=== PATIENT | female | born 1960 | race African-American/Black ===

== ENCOUNTER → 2016-03-08 | Outpatient (CLI) | payer MEDICARE, OTHER ==
[~2016-03-08] MED LIST: IBUP-232 PO; IBUP600 PO; LISI-515 PO; LISI10TA3 PO; MAXZ PO; METF500 PO; METF500T PO; PRED5TAB PO
[2016-03-08 08:44] LABS: AUTOMATED NEUTROPHIL # 2.3 TH/MM3 (1.8-7.7); BASOPHIL % 0.5 % (0.0-2.0); EOSINOPHIL # 0.1 TH/MM3 (0-0.4); EOSINOPHIL % 2.1 % (0.0-4.0); HEMATOCRIT 39.6 % (35.0-46.0); HEMO FLAGS DIFF FINAL; LYMPH % 48.9 % (9.0-44.0); LYMPHOCYTE # 2.7 TH/MM3 (1.0-4.8); MEAN CELL VOLUME 86.3 FL (80.0-100.0); MEAN CORPUSCULAR HEMOGLOBIN 28.4 PG (27.0-34.0); MEAN CORPUSCULAR HGB CONC 32.9 % (32.0-36.0); MONO % 7.2 % (0.0-8.0); NEUT % 41.3 % (16.0-70.0); PLATELET COUNT 155 TH/MM3 (150-450); RED BLOOD COUNT 4.59 MIL/MM3 (4.00-5.30); RED CELL DISTRIBUTION WIDTH 15.3 % (11.6-17.2); WHITE BLOOD COUNT 5.6 TH/MM3 (4.0-11.0)
[2016-03-08 09:18] LABS: ALKALINE PHOSPHATASE 105 U/L (45-117); ALT (GPT) 28 U/L (10-53); ANION GAP 6 MEQ/L (5-15); AST (GOT) 28 U/L (15-37); BICARBONATE 24.7 MEQ/L (21.0-32.0); BLOOD UREA NITROGEN 15 MG/DL (7-18); CHLORIDE 109 MEQ/L (98-107); FREE T4 1.01 NG/DL (0.76-1.46); GLOMERULAR FILTRATION RATE 132 ML/MIN (>89); GLUCOSE,FASTING 113 MG/DL (74-99); HDL CHOLESTEROL 43.8 MG/DL (40.0-60.0); LDL CHOLESTEROL 72 MG/DL (0-99); POTASSIUM 3.7 MEQ/L (3.5-5.1); SODIUM (NA) 140 MEQ/L (136-145); TOTAL BILIRUBIN ADULT 0.4 MG/DL (0.2-1.0)
[2016-03-08 16:46] LABS: HEMOGLOBIN A1a 0.9 %; HEMOGLOBIN A1b 0.9 %; HEMOGLOBIN Ao 85.7 %; HEMOGLOBIN F 0.6 %; HEMOGLOBIN P3 3.5 %
== END ==
LOC: CLAB 08:04
PROVIDERS: ATTEND Internal Medicine Rheumatology
DX: B19.20 Unspecified viral hepatitis C without hepatic coma (principal); E11.65 Type 2 diabetes mellitus with hyperglycemia; M33.20 Polymyositis, organ involvement unspecified; Z12.11 Encounter for screening for malignant neoplasm of colon
CPT/HCPCS: 36415; 80053; 80061; 82306; 82550; 82552; 83036; 84439; 84443; 85025; 85652; 86140

== ENCOUNTER 2016-08-08 16:43 | Emergency (ER) | payer MEDICARE, OTHER ==
[~2016-08-08] VITALS: Ht 170.2 cm; Wt 104.0 kg
[~2016-08-08 16:43] MED LIST changes: -IBUP-232 PO; -LISI-515 PO; -LISI10TA3 PO; -METF500T PO; -PRED5TAB PO
[2016-08-08 16:45] VITALS: BP 223/129; PULSE 104; RESP 16; TEMP 98.7
--- NOTE | 2016-08-08 16:53 | PD ---
HPI . elevated bp, sob, chest tightness Chief Complaint: Hypertension Time Seen by Provider: 16:53 Travel History International Travel<30 days: No Contact w/Intl Traveler<30days: No Traveled to known affect area: No History of Present Illness HPI 56-year-old female with history of diabetes, hypertension, asthma and frequent falling due to polymyositis here with complaints of elevated blood pressure. Patient said that her blood pressures been elevated today and her home health nurse was very concerned. Her home health nurses checked her blood pressure twice today systolic was greater than 200. Patient also reports that she had shortness of breath, coughing and chest tightness intermittently for the past month. He also tells me that she's been falling frequently and that April of this year she sustained bilateral ankle fracture due to falling. She said she did not have a slip and fall that she just seems to fall frequently. She reports falling in 2014, 2015 and 2 times this year already. She denies any fever or chills. PFSH Past Medical History Asthma: Yes Heart Rhythm Problems: No Cardiac Catheterization: No Cardiovascular Problems: No High Cholesterol: No Congestive Heart Failure: No Diabetes: No Diminished Hearing: No Hypertension: No Immunizations Current: No Migraines: Yes (DAILY H/A FOR YEARS) Myocardial Infarction: No ?: Unknown Menopausal: Yes Past Surgical History Abdominal Surgery: Yes (FIBROIDS) Coronary Artery Bypass Graft: No Gynecologic Surgery: Yes (UTERINS FIBROIDS REMOVED) Social History Alcohol Use: No Tobacco Use: No Substance Use: No Allergies-Medications (Allergen,Severity, Reaction): Coded Allergies: Sulfa (Verified Allergy, Mild, HIVES AND BUMPS, 07/31/15) Reported Meds & Prescriptions Reported Meds & Active Scripts Active Lisinopril 20 Mg Tab 20 Mg PO DAILY Reported Prednisone 5 Mg Tab 5 Mg PO DAILY Ibuprofen 600 Mg Tab 600 Mg PO Q8H PRN Lisinopril 10 Mg Tab 10 Mg PO DAILY Metformin (Metformin HCl) 500 Mg Tab 500 Mg PO BIDPC With meals Review of Systems General / Constitutional: No: Fever Eyes: No: Visual changes HENT: No: Headaches Cardiovascular: Positive: Chest Pain or Discomfort Respiratory: Positive: Cough, Shortness of Breath, No: Wheezing Gastrointestinal: No: Abdominal Pain Genitourinary: No: Dysuria Musculoskeletal: No: Pain Skin: No Rash Neurologic: No: Weakness Psychiatric: No: Depression Endocrine: No: Polydipsia Hematologic/Lymphatic: No: Easy Bruising Physical Exam Narrative GENERAL: AAO x 3, no acute distress, Well-nourished, well-developed patient. SKIN: Warm and dry. No visible rashes or bruising. HEAD: Normocephalic and atraumatic. EYES: No scleral icterus. No injection or drainage. EOM intact, PERRLA ENT: No nasal drainage noted. Mucous membranes pink. Airway patent. oropharynx normal NECK: Supple, trachea midline. No JVD. no lymphadenopathy CARDIOVASCULAR: Regular rate and rhythm without murmurs, gallops, or rubs. RESPIRATORY: Breath sounds equal bilaterally. No accessory muscle use. No rhonchi or rales. GASTROINTESTINAL: Abdomen soft, non-tender, nondistended. EXTREMITIES: No cyanosis or edema. BACK: Nontender without obvious deformity. No CVA tenderness. NEURO: CN II-12 intact, director medicaid strength normal b/l, UE and LE diminished b/l 4/5 but equal, PSYCH: AAO x 3, normal affect. Data Data Last Documented VS Vital Signs Date Time Temp Pulse Resp B/P Pulse Ox O2 Delivery O2 Flow Rate FiO2 08/08/16 18:56 75 16 187/103 97 08/08/16 17:42 Room Air 08/08/16 16:45 98.7 Orders Complete Blood Count With Diff (08/08/16 17:05) Basic Metabolic Panel (Bmp) (08/08/16 17:05) B-Type Natriuretic Peptide (08/08/16 17:05) D-Dimer (08/08/16 17:05) Act Partial Throm Time (Ptt) (08/08/16 17:05) Prothrombin Time / Inr (Pt) (08/08/16 17:05) Magnesium (Mg) (08/08/16 17:05) Ckmb (Isoenzyme) Profile (08/08/16 17:05) Troponin I (08/08/16 17:05) Iv Access Insert/Monitor (08/08/16 17:05) Ecg Monitoring (08/08/16 17:05) Oximetry (08/08/16 17:05) Oxygen Administration (08/08/16 17:05) Chest, Single Ap (08/08/16 17:05) Sodium Chloride 0.9% Flush (Ns Flush) (08/08/16 17:15) Electrocardiogram (08/08/16 17:03) CKMB (08/08/16 17:10) CKMB% (08/08/16 17:10) Ketorolac Inj (Toradol Inj) (08/08/16 18:15) Labs Laboratory Tests Test 08/08/16 17:10 White Blood Count 8.6 TH/MM3 Red Blood Count 4.69 MIL/MM3 Hemoglobin 13.5 GM/DL Hematocrit 40.9 % Mean Corpuscular Volume 87.3 FL Mean Corpuscular Hemoglobin 28.8 PG Mean Corpuscular Hemoglobin 32.9 % Concent Red Cell Distribution Width 14.8 % Platelet Count 148 TH/MM3 Mean Platelet Volume 9.1 FL Neutrophils (%) (Auto) 54.7 % Lymphocytes (%) (Auto) 38.7 % Monocytes (%) (Auto) 5.2 % Eosinophils (%) (Auto) 1.1 % Basophils (%) (Auto) 0.3 % Neutrophils # (Auto) 4.7 TH/MM3 Lymphocytes # (Auto) 3.3 TH/MM3 Monocytes # (Auto) 0.4 TH/MM3 Eosinophils # (Auto) 0.1 TH/MM3 Basophils # (Auto) 0.0 TH/MM3 CBC Comment DIFF FINAL Differential Comment Prothrombin Time 10.6 SEC Prothromb Time International 1.0 RATIO Ratio Activated Partial 23.4 SEC Thromboplast Time D-Dimer Quantitative (PE/DVT) 0.39 MG/L FEU Sodium Level 142 MEQ/L Potassium Level 4.2 MEQ/L Chloride Level 108 MEQ/L Carbon Dioxide Level 27.2 MEQ/L Anion Gap 7 MEQ/L Blood Urea Nitrogen 13 MG/DL Creatinine 0.83 MG/DL Estimat Glomerular Filtration 85 ML/MIN Rate Random Glucose 127 MG/DL Calcium Level 9.0 MG/DL Magnesium Level 2.2 MG/DL Total Creatine Kinase 604 U/L Creatine Kinase MB 5.6 NG/ML Creatine Kinase MB % 0.9 % Troponin I LESS THAN 0.02 NG/ML B-Type Natriuretic Peptide 3 PG/ML MDM Medical Decision Making Medical Screen Exam Complete: Yes Emergency Medical Condition: Yes Medical Record Reviewed: Yes Differential Diagnosis uncontrolled HTN, medication noncompliance, less likely CVA, allergic asthma, less likely asthma exacerbation, Narrative Course 56-year-old female here with complaints of hypertension. Patient also reports some intermittent shortness of breath and chest tightness for the past month. She does have a history of asthma. IV access was obtained, labs and chest x-ray have been ordered. Examination is fairly unremarkable except for bilateral lower extremity weakness 4/5, which appears to be baseline for this patient. I reviewed her past medical records dating back to 2014 and patient does suffer from osteomyelitis causing weakness in both her upper and lower extremities. This also explains her frequent falls. Chest x-ray without any acute abnormality. Last Impressions Chest X-Ray 08/08/16 1245 Signed Impressions: Service Date/Time: , August 08, 2016 17:17 - CONCLUSION: No acute disease. No significant change has occurred. Lenny Yates MD D-dimer is negative. CK and CK-MB are both elevated, but records have been reviewed and they're actually lower than her outpatient lab values. In February 2016 patient had a CK of 797, CK-MB of 8.0. Today they are both lower. It seems patient has baseline elevation of these markers. Otherwise her workup is unremarkable. Patient is only on 10 mg of lisinopril daily. This does not seem to be enough for her blood pressure. I will go ahead and provide her with a prescription for 20 mg of lisinopril daily. BP did improve prior to discharge and patient is asymptomatic. She will need follow-up with her primary care provider for blood pressure monitoring and adjustment of her medication. I have discussed this with her and she is understanding and in agreement with the treatment plan. Case has been discussed with Dr. Callaway who is in agreement with treatment plan. Patient verbalized understanding of instructions, questions were answered, and thanked me for their care. I advised them if their condition worsens, please return to the nearest emergency room for further care. Diagnosis Primary Impression: Hypertension Qualified Code: I10 - Essential hypertension Patient Instructions: General Instructions Additional Instructions: Stop lisinopril 10 mg. Start lisinopril 20 mg daily. Please follow-up with your recovery care provider for blood pressure monitoring and medication adjustment. If any of your symptoms return or worsen, go to the nearest emergency department. Med/Other Pt SpecificInfo: Prescription(s) given Scripts Lisinopril 20 Mg Tab20 Mg PO DAILY #30 TAB Ref 0 Prov:Aristides Callaway MD 08/08/16 Disposition: 01 DISCHARGE HOME Condition: Stable Sandy Feldman Aug 08, 2016 16:53
[2016-08-08 17:00] VITALS: O2SAT 97
[2016-08-08] MEDS ORDERED: SODIUM CHLORIDE 0.9% FLUSH 10 ML FLUSH IVF PRN (17:15)
--- NOTE | 2016-08-08 17:36 | RADRPT ---
EXAM DATE/TIME: 08/08/2016 17:17 [facility] COMPARISON: CHEST SINGLE AP, April 26, 2014, 14:28. INDICATIONS : High blood pressure and short of breath. MEDICAL HISTORY : High blood pressure. SURGICAL HISTORY : None. ENCOUNTER: Initial ACUITY: 1 day PAIN SCORE: 0/10 LOCATION: Bilateral chest FINDINGS: A single view of the chest demonstrates the lungs to be symmetrically aerated without evidence of mas s, infiltrate or effusion. The cardiomediastinal contours are unremarkable. Osseous structures are intact. CONCLUSION: No acute disease. No significant change has occurred. Lenny Yates MD on August 08, 2016 at 17:33 Board Certified Radiologist. This report was verified electronically.
[2016-08-08 17:42] VITALS: BP 204/106; PULSE 92; RESP 16; O2SAT 97
[2016-08-08 17:47] LABS: AUTOMATED NEUTROPHIL # 4.7 TH/MM3 (1.8-7.7); BASOPHIL % 0.3 % (0.0-2.0); EOSINOPHIL # 0.1 TH/MM3 (0-0.4); EOSINOPHIL % 1.1 % (0.0-4.0); HEMATOCRIT 40.9 % (35.0-46.0); HEMO FLAGS DIFF FINAL; LYMPH % 38.7 % (9.0-44.0); LYMPHOCYTE # 3.3 TH/MM3 (1.0-4.8); MEAN CELL VOLUME 87.3 FL (80.0-100.0); MEAN CORPUSCULAR HEMOGLOBIN 28.8 PG (27.0-34.0); MEAN CORPUSCULAR HGB CONC 32.9 % (32.0-36.0); MONO % 5.2 % (0.0-8.0); NEUT % 54.7 % (16.0-70.0); PLATELET COUNT 148 TH/MM3 (150-450); RED BLOOD COUNT 4.69 MIL/MM3 (4.00-5.30); RED CELL DISTRIBUTION WIDTH 14.8 % (11.6-17.2); WHITE BLOOD COUNT 8.6 TH/MM3 (4.0-11.0)
[2016-08-08 17:58] LABS: APTT (PATIENT) 23.4 SEC (24.3-30.1); PROTHROMBIN TIME - PATIENT 10.6 SEC (9.8-11.6)
[2016-08-08 18:11] LABS: CREATINE KINASE 604 U/L (26-192)
[2016-08-08] MEDS ORDERED: KETOROLAC TROMETHAMINE 60 MG/2 ML (IM) VIAL IM ONE (18:15)
[2016-08-08 18:16] LABS: ANION GAP 7 MEQ/L (5-15); BICARBONATE 27.2 MEQ/L (21.0-32.0); BLOOD UREA NITROGEN 13 MG/DL (7-18); CHLORIDE 108 MEQ/L (98-107); GLOMERULAR FILTRATION RATE 85 ML/MIN (>89); MAGNESIUM 2.2 MG/DL (1.5-2.5); POTASSIUM 4.2 MEQ/L (3.5-5.1); SODIUM (NA) 142 MEQ/L (136-145)
[2016-08-08 18:24] LABS: CKMB 5.6 NG/ML (0.5-3.6)
[2016-08-08] MEDS ORDERED: IBUP-232 PO (18:26)
[2016-08-08] MEDS ORDERED: METF500T PO (18:26)
[2016-08-08] MEDS ORDERED: PRED5TAB PO (18:26)
[2016-08-08] MEDS ORDERED: LISI10TA3 PO (18:26)
[2016-08-08] MEDS ORDERED: LISI-515 PO (18:37)
[2016-08-08 18:56] VITALS: BP 187/103
--- NOTE | 2016-08-09 16:20 | EKG ---
Date Performed: 08/08/2016 Time Performed: 17:03:27 PTAGE: 56 years EKG: Sinus rhythm BORDERLINE LEFT AXIS DEVIATION VOLTAGE CRITERIA FOR LVH NONSPECIFIC T-WAVE ABNORMALITY ABNORMAL ECG PREVIOUS TRACING : 02/13/2011 08.38 Compared to prior tracing no significant change DOCTOR: Hector Orourke Interpretating Date/Time 08/09/2016 16:18:41
== END 2016-08-08 18:58 | disposition home or self-care (01) ==
LOC: NEPC 16:43
DX: I10 Essential (primary) hypertension (principal); R07.89 Other chest pain; R06.02 Shortness of breath; R94.31 Abnormal electrocardiogram [ECG] [EKG]; J45.909 Unspecified asthma, uncomplicated; E11.9 Type 2 diabetes mellitus without complications; M33.20 Polymyositis, organ involvement unspecified; Z91.81 History of falling
CPT/HCPCS: 71010; 80048; 82550; 82552; 83735; 83880; 84484; 85025; 85379; 85610; 85730; 93005; 96372; 99285; J1885

== ENCOUNTER → 2016-10-08 | Outpatient (CLI) | payer MEDICARE, MEDICAID ==
[~2016-10-08] MED LIST changes: +IBUP-232 PO; -IBUP600 PO; +LISI-515 PO; +LISI10TA3 PO; -MAXZ PO; -METF500 PO; +METF500T PO; +PRED5TAB PO
[2016-10-08 09:16] LABS: AUTOMATED NEUTROPHIL # 3.5 TH/MM3 (1.8-7.7); BASOPHIL % 0.3 % (0.0-2.0); EOSINOPHIL # 0.1 TH/MM3 (0-0.4); EOSINOPHIL % 2.1 % (0.0-4.0); HEMATOCRIT 43.1 % (35.0-46.0); HEMO FLAGS DIFF FINAL; LYMPH % 37.9 % (9.0-44.0); LYMPHOCYTE # 2.5 TH/MM3 (1.0-4.8); MEAN CORPUSCULAR HEMOGLOBIN 29.2 PG (27.0-34.0); MEAN CORPUSCULAR HGB CONC 32.8 % (32.0-36.0); MONO % 6.3 % (0.0-8.0); NEUT % 53.4 % (16.0-70.0); PLATELET COUNT 175 TH/MM3 (150-450); RED BLOOD COUNT 4.84 MIL/MM3 (4.00-5.30); RED CELL DISTRIBUTION WIDTH 14.5 % (11.6-17.2); WHITE BLOOD COUNT 6.5 TH/MM3 (4.0-11.0)
[2016-10-08 09:54] LABS: ANION GAP 8 MEQ/L (5-15); AST (GOT) 25 U/L (15-37); BICARBONATE 25.2 MEQ/L (21.0-32.0); BLOOD UREA NITROGEN 10 MG/DL (7-18); CHLORIDE 105 MEQ/L (98-107); GLOMERULAR FILTRATION RATE 143 ML/MIN (>89); GLUCOSE,FASTING 118 MG/DL (74-99); POTASSIUM 3.9 MEQ/L (3.5-5.1); SODIUM (NA) 138 MEQ/L (136-145)
[2016-10-08 10:08] LABS: ALKALINE PHOSPHATASE 105 U/L (45-117); ALT (GPT) 24 U/L (10-53); HDL CHOLESTEROL 37.2 MG/DL (40.0-60.0); LDL CHOLESTEROL 67 MG/DL (0-99); TOTAL BILIRUBIN ADULT 0.5 MG/DL (0.2-1.0)
[2016-10-08 10:22] LABS: CKMB 7.4 NG/ML (0.5-3.6)
[2016-10-08 17:55] LABS: HEMOGLOBIN A1a 0.9 %; HEMOGLOBIN Ao 85.5 %; HEMOGLOBIN F 0.8 %; HEMOGLOBIN LA1C 1.9 %; HEMOGLOBIN P3 3.5 %
== END ==
LOC: CLAB 08:29
DX: E11.65 Type 2 diabetes mellitus with hyperglycemia (principal); M33.20 Polymyositis, organ involvement unspecified; D64.9 Anemia, unspecified; E03.9 Hypothyroidism, unspecified; E78.5 Hyperlipidemia, unspecified; Z13.228 Encounter for screening for other metabolic disorders
CPT/HCPCS: 36415; 80053; 80061; 82550; 82552; 83036; 84443; 85025; 85652

== ENCOUNTER 2017-02-16 10:17 | Emergency (ER) | payer MEDICARE, MEDICAID ==
[~2017-02-16] VITALS: Ht 170.2 cm; Wt 104.0 kg
[2017-02-16 10:20] VITALS: BP 193/100; PULSE 98; RESP 14; TEMP 98.6; O2SAT 96
--- NOTE | 2017-02-16 10:29 | PD ---
HPI Chief Complaint: Bleeding Time Seen by Provider: 10:29 Travel History International Travel<30 days: No Contact w/Intl Traveler<30days: No Traveled to known affect area: No History of Present Illness HPI 57-year-old female came to the emergency room with history of vaginal bleeding that's been going on for past 2 days. Patient says she has been little lightheaded on and off in these past 2 days. Patient says initially this was heavy bleeding but it is slowly getting less. Patient has history of polymyalgia rheumatica and has trouble walking. She has usual shortness of breath which hasn't worsened. Vital signs were otherwise acceptable. Patient has been menopausal for past 10 years. She is not on any blood thinners. [facility] Past Medical History Narrative Medical List of her past medical, surgical, social and family history is reviewed from the nursing note. Asthma: Yes Heart Rhythm Problems: No Cardiac Catheterization: No Cardiovascular Problems: No High Cholesterol: No Congestive Heart Failure: No Diabetes: Yes Diminished Hearing: No Hypertension: No Immunizations Current: No Migraines: Yes (DAILY H/A FOR YEARS) Myocardial Infarction: No Menopausal: Yes Past Surgical History Abdominal Surgery: Yes (FIBROIDS) Coronary Artery Bypass Graft: No Gynecologic Surgery: Yes (UTERINS FIBROIDS REMOVED) Social History Alcohol Use: No Tobacco Use: No Substance Use: No Allergies-Medications (Allergen,Severity, Reaction): Coded Allergies: Sulfa (Sulfonamide Antibiotics) (Unverified Allergy, Mild, HIVES AND BUMPS , 02/16/17) Comments List of her allergies reviewed from the nursing note. Reported Meds & Prescriptions Reported Meds & Active Scripts Active Tranexamic Acid 650 Mg Tab 1,300 Mg PO TID 5 Days Reported Metformin (Metformin HCl) 500 Mg Tab 500 Mg PO BIDPC Furosemide 20 Mg Tab 20 Mg PO DAILY Hydrochlorothiazide 12.5 Mg Cap 12.5 Mg PO DAILY Lisinopril 40 Mg Tab 40 Mg PO DAILY Narrative Medication List of her home medications reviewed from the nursing note. Review of Systems Except as stated in HPI: all other systems reviewed are Neg Genitourinary: Positive: Menorrhagia Physical Exam Narrative GENERAL: Awake, alert, morbidly obese, moderate distress SKIN: Focused skin assessment warm/dry. HEAD: Atraumatic. Normocephalic. EYES: Pupils equal and round. No scleral icterus. No injection or drainage. ENT: No nasal bleeding or discharge. Mucous membranes pink and moist. NECK: Trachea midline. No JVD. CARDIOVASCULAR: Regular rate and rhythm. No murmur appreciated. RESPIRATORY: No accessory muscle use. Clear to auscultation. Breath sounds equal bilaterally. GASTROINTESTINAL: Abdomen soft, non-tender, nondistended. Hepatic and splenic margins not palpable. MUSCULOSKELETAL: No obvious deformities. No clubbing. No cyanosis. No edema. NEUROLOGICAL: Awake and alert. No obvious cranial nerve deficits. Motor grossly within normal limits. Normal speech. PSYCHIATRIC: Appropriate mood and affect; insight and judgment normal. Data Data Last Documented VS Orders Orders Electrocardiogram (02/16/17 10:34) Basic Metabolic Panel (Bmp) (02/16/17 10:34) Ckmb (Isoenzyme) Profile (02/16/17 10:34) Complete Blood Count With Diff (02/16/17 10:34) Magnesium (Mg) (02/16/17 10:34) Prothrombin Time / Inr (Pt) (02/16/17 10:34) Act Partial Throm Time (Ptt) (02/16/17 10:34) Troponin I (02/16/17 10:34) Chest, Single Ap (02/16/17 10:34) Ecg Monitoring (02/16/17 10:34) Bilateral Bp Monitoring (02/16/17 10:34) Iv Access Insert/Monitor (02/16/17 10:34) Oximetry (02/16/17 10:34) Oxygen Administration (02/16/17 10:34) Sodium Chloride 0.9% Flush (Ns Flush) (02/16/17 10:45) Type And Screen (02/16/17 10:34) Urinalysis - C+S If Indicated (02/16/17 10:36) Thyroid Stimulating Hormone (02/16/17 10:40) Us Pelvis Comp W Transvaginal (02/16/17 ) Ed Discharge Order (02/16/17 12:39) CKMB (02/16/17 11:40) CKMB% (02/16/17 11:40) Mandatory Outpatient Referral (02/16/17 12:49) Labs Laboratory Tests Test 02/16/17 10:40 02/16/17 11:40 White Blood Count 7.8 TH/MM3 Red Blood Count 4.85 MIL/MM3 Hemoglobin 14.6 GM/DL Hematocrit 43.4 % Mean Corpuscular Volume 89.5 FL Mean Corpuscular Hemoglobin 30.1 PG Mean Corpuscular Hemoglobin Concent 33.6 % Red Cell Distribution Width 14.5 % Platelet Count 179 TH/MM3 Mean Platelet Volume 9.0 FL Neutrophils (%) (Auto) 48.5 % Lymphocytes (%) (Auto) 44.4 % Monocytes (%) (Auto) 5.0 % Eosinophils (%) (Auto) 1.6 % Basophils (%) (Auto) 0.5 % Neutrophils # (Auto) 3.8 TH/MM3 Lymphocytes # (Auto) 3.5 TH/MM3 Monocytes # (Auto) 0.4 TH/MM3 Eosinophils # (Auto) 0.1 TH/MM3 Basophils # (Auto) 0.0 TH/MM3 CBC Comment DIFF FINAL Differential Comment Urine Color YELLOW Urine Turbidity CLEAR Urine pH 6.0 Urine Specific [place] 1.019 Urine Protein TRACE mg/dL Urine Glucose (UA) NEG mg/dL Urine Ketones NEG mg/dL Urine Occult Blood NEG Urine Nitrite NEG Urine Bilirubin NEG Urine Urobilinogen 2.0 MG/DL Urine Leukocyte Esterase NEG Urine RBC 3 /hpf Urine WBC 1 /hpf Urine Squamous Epithelial Cells 1 /hpf Urine Hyaline Casts 3 /lpf Urine Mucus FEW /lpf Microscopic Urinalysis Comment CATH-CULT NOT IND Prothrombin Time 10.7 SEC Prothromb Time International Ratio 1.1 RATIO Activated Partial Thromboplast Time 25.2 SEC Blood Urea Nitrogen 16 MG/DL Creatinine 0.55 MG/DL Random Glucose 105 MG/DL Calcium Level 8.7 MG/DL Magnesium Level 2.3 MG/DL Sodium Level 140 MEQ/L Potassium Level 4.5 MEQ/L Chloride Level 110 MEQ/L Carbon Dioxide Level 26.1 MEQ/L Anion Gap 4 MEQ/L Estimat Glomerular Filtration Rate 137 ML/MIN Total Creatine Kinase 721 U/L Creatine Kinase MB 6.4 NG/ML Creatine Kinase MB % 0.9 % Troponin I LESS THAN 0.02 NG/ML Thyroid Stimulating Hormone 3rd Gen 2.850 uIU/ML [facility] Medical Decision Making Medical Screen Exam Complete: Yes Emergency Medical Condition: Yes Medical Record Reviewed: Yes Interpretation(s) Twelve-lead EKG was reviewed by me. Normal sinus rhythm, left axis deviation, LVH by voltage criteria, nonspecific ST-T wave changes. Heart rate of 91 bpm. Differential Diagnosis Endometrial cancer, vaginal bleeding NOS Narrative Course 12:58 PM blood test results of back and within acceptable limits. Ultrasound of the uterus shows a possible mass. I discussed the case with the OB hospitalist Dr. Allen. He did not think that patient needed to be admitted. No [id number] consultation was needed as per him. 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 I have put a mandatory referral for Dr. Aldridge and explained all this to the patient. She understands the instructions and will follow up with [facility] outpatient. Procedures EKG Prior to Arrival: No Physician Communication Physician Communication Dr. Allen Diagnosis Primary Impression: Vaginal bleeding Additional Impressions: Menorrhagia possible endometrial cancer Referrals: Gagan Aldridge MD 2 days Additional Instructions: Please return to the ER if condition worsens or any other new concerns. Otherwise take the medication as per the prescription direction. Follow-up with the [facility] [facility] who is name and number has been provided to you on these discharge instructions. Med/Other Pt SpecificInfo: Prescription(s) given Scripts Tranexamic Acid (Tranexamic Acid) 650 Mg Tab 1300 MG PO TID for Control Heavy Menstruation for 5 Days, TAB 0 Refills Prov: Pepito Mac MD 02/16/17 Disposition: 01 DISCHARGE HOME Condition: Stable Pepito Mac MD Feb 16, 2017 10:29
[2017-02-16 10:33] VITALS: O2SAT 96
[2017-02-16] MEDS ORDERED: SODIUM CHLORIDE 0.9% FLUSH 10 ML FLUSH IVF PRN (10:45)
[2017-02-16] MEDS ORDERED: FURO20TA PO (10:54)
[2017-02-16] MEDS ORDERED: HYDR12.57 PO (10:54)
[2017-02-16] MEDS ORDERED: METF500T PO (10:54)
[2017-02-16] MEDS ORDERED: LISI40TA PO (10:54)
[2017-02-16 11:06] LABS: AUTOMATED NEUTROPHIL # 3.8 TH/MM3 (1.8-7.7); BASOPHIL % 0.5 % (0.0-2.0); EOSINOPHIL # 0.1 TH/MM3 (0-0.4); EOSINOPHIL % 1.6 % (0.0-4.0); HEMATOCRIT 43.4 % (35.0-46.0); HEMOGLOBIN 14.6 GM/DL (11.6-15.3); LYMPH % 44.4 % (9.0-44.0); LYMPHOCYTE # 3.5 TH/MM3 (1.0-4.8); MEAN CELL VOLUME 89.5 FL (80.0-100.0); MEAN CORPUSCULAR HEMOGLOBIN 30.1 PG (27.0-34.0); MEAN CORPUSCULAR HGB CONC 33.6 % (32.0-36.0); MONOCYTE # 0.4 TH/MM3 (0-0.9); NEUT % 48.5 % (16.0-70.0); PLATELET COUNT 179 TH/MM3 (150-450); RED BLOOD COUNT 4.85 MIL/MM3 (4.00-5.30); RED CELL DISTRIBUTION WIDTH 14.5 % (11.6-17.2); WHITE BLOOD COUNT 7.8 TH/MM3 (4.0-11.0)
[2017-02-16 11:07] LABS: BILIRUBIN, URINE NEG (NEG); BLOOD, URINE NEG (NEG); GLUCOSE,URINE NEG (NEG); HYALINE CAST, URINE 3 /lpf (RARE); KETONE, URINE NEG (NEG); MUCUS URINE FEW /lpf (OCC); NITRITE,URINE NEG (NEG); SQUAMOUS EPITHELIAL CELL URINE 1 /hpf (0-5); URINE COLOR YELLOW (YELLW/STRAW); URINE LEUKOCYTE ESTERASE NEG (NEG)
--- NOTE | 2017-02-16 11:16 | RADRPT ---
EXAM DATE/TIME: 02/16/2017 11:02 [facility] COMPARISON: CHEST SINGLE AP, August 08, 2016, 17:17. INDICATIONS : Cough, congestion, and chest pain for one week. MEDICAL HISTORY : Hypertension. SURGICAL HISTORY : None. ENCOUNTER: Initial ACUITY: 1 week PAIN SCORE: 10/10 LOCATION: Right chest FINDINGS: A single view of the chest demonstrates the lungs to be symmetrically aerated without evidence of mas s, infiltrate or effusion. The cardiomediastinal contours are unremarkable. Osseous structures are intact. CONCLUSION: No acute disease. Gen Pereira MD on February 16, 2017 at 11:10 Board Certified Radiologist. This report was verified electronically.
[2017-02-16 11:55] VITALS: BP 169/94; PULSE 77; RESP 16; O2SAT 96
--- NOTE | 2017-02-16 12:02 | RADRPT ---
EXAM DATE/TIME: 02/16/2017 11:02 [facility] COMPARISON: No previous studies available for comparison. INDICATIONS : Bleeding. MEDICAL HISTORY : Hypertension. Migraines. Asthma. Uterine fibroids. Diabetes. SURGICAL HISTORY : Fibroid removal. ENCOUNTER: Initial ACUITY: 1 day PAIN SCORE: 0/10 LOCATION: Bilateral pelvis MEASUREMENTS: UTERUS: 8.3 x 4.7 x 4.1 cm ENDOMETRIAL STRIPE: 12 mm RIGHT OVARY: Non visualized LEFT OVARY: 4.2 x 2.6 x 2.4 cm FINDINGS: UTERUS: The endometrium is thickened. There is echogenic material within the endometrial cavity. RIGHT OVARY: Right ovary is not seen. LEFT OVARY: There are 2 cysts seen in the left ovary with the larger one measuring 2.1 cm in greatest dimension. MISCELLANEOUS: There is mild free fluid in the cul-de-sac. CONCLUSION: 1. The region is thickened with complex material within the endometrial cavity representing either he morrhage, debris or potential mass extending into the endometrium. [employer] WORK[employer] consultation is recommended. 2. Small simple cyst the left ovary. 3. Mild free fluid. 4. The right ovary is not seen. A right adnexal mass is not seen. Gen Pereira MD on February 16, 2017 at 11:56 Board Certified Radiologist. This report was verified electronically.
[2017-02-16 12:03] LABS: INTERNATIONAL NORMALIZED RATIO 1.1 RATIO; PROTHROMBIN TIME - PATIENT 10.7 SEC (9.8-11.6)
[2017-02-16] MEDS ORDERED: TRAN650T PO (12:22)
[2017-02-16 12:44] LABS: BICARBONATE 26.1 MEQ/L (21.0-32.0); BLOOD UREA NITROGEN 16 MG/DL (7-18); CALCIUM 8.7 MG/DL (8.5-10.1); CHLORIDE 110 MEQ/L (98-107); CREATININE 0.55 MG/DL (0.50-1.00); GLOMERULAR FILTRATION RATE 137 ML/MIN (>89); GLUCOSE,RANDOM 105 MG/DL (74-106); MAGNESIUM 2.3 MG/DL (1.5-2.5); SODIUM (NA) 140 MEQ/L (136-145); TROPONIN I LESS THAN 0.02 NG/ML (0.02-0.05)
--- NOTE | 2017-02-16 22:25 | EKG ---
Date Performed: 02/16/2017 Time Performed: 10:43:21 PTAGE: 57 years EKG: Sinus rhythm MARKED LEFT AXIS DEVIATION VOLTAGE CRITERIA FOR LVH NONSPECIFIC T-WAVE ABNORMALITY ABNORMAL ECG No s ignificant change from prior electrocardiogram. PREVIOUS TRACING : 08/08/2016 17.03 DOCTOR: Enoc Fitch Interpretating Date/Time 02/16/2017 22:24:26
== END 2017-02-16 13:05 | disposition home or self-care (01) ==
LOC: NEPE 10:17
DX: N92.0 Excessive and frequent menstruation with regular cycle (principal); M35.3 Polymyalgia rheumatica; J45.909 Unspecified asthma, uncomplicated; E11.9 Type 2 diabetes mellitus without complications; I10 Essential (primary) hypertension; R94.31 Abnormal electrocardiogram [ECG] [EKG]; R06.02 Shortness of breath; Z88.2 Allergy status to sulfonamides
CPT/HCPCS: 71010; 76830; 76856; 80048; 81001; 82550; 82552; 83735; 84443; 84484; 85025; 85610; 85730; 86850; 86900; 86901; 93005; 99285

== ENCOUNTER → 2017-06-19 | Outpatient (CLI) | payer MEDICARE, MEDICAID ==
[~2017-06-19] MED LIST changes: +FURO20TA PO; +HYDR12.57 PO; -IBUP-232 PO; -LISI-515 PO; -LISI10TA3 PO; +LISI40TA PO; -PRED5TAB PO; +TRAN650T PO
[2017-06-19 08:45] LABS: AUTOMATED NEUTROPHIL # 2.8 TH/MM3 (1.8-7.7); BASOPHIL % 0.5 % (0.0-2.0); EOSINOPHIL # 0.1 TH/MM3 (0-0.4); EOSINOPHIL % 2.1 % (0.0-4.0); HEMOGLOBIN 14.7 GM/DL (11.6-15.3); LYMPH % 49.7 % (9.0-44.0); LYMPHOCYTE # 3.2 TH/MM3 (1.0-4.8); MEAN CELL VOLUME 89.6 FL (80.0-100.0); MEAN CORPUSCULAR HEMOGLOBIN 30.7 PG (27.0-34.0); MEAN CORPUSCULAR HGB CONC 34.2 % (32.0-36.0); MONO % 5.2 % (0.0-8.0); MONOCYTE # 0.3 TH/MM3 (0-0.9); NEUT % 42.5 % (16.0-70.0); PLATELET COUNT 172 TH/MM3 (150-450); RED CELL DISTRIBUTION WIDTH 13.9 % (11.6-17.2); WHITE BLOOD COUNT 6.5 TH/MM3 (4.0-11.0)
[2017-06-19 09:11] LABS: ALT (GPT) 26 U/L (10-53); CHOLESTEROL 136 MG/DL (120-200)
[2017-06-19 09:21] LABS: ALKALINE PHOSPHATASE 97 U/L (45-117); CHOLESTEROL/ HDL RATIO 3.42 RATIO; HDL CHOLESTEROL 39.7 MG/DL (40.0-60.0); LDL CHOLESTEROL 78 MG/DL (0-99); TOTAL BILIRUBIN ADULT 0.6 MG/DL (0.2-1.0); TRIGLYCERIDES 90 MG/DL (42-150)
[2017-06-19 09:23] LABS: ALBUMIN 3.5 GM/DL (3.4-5.0); AST (GOT) 34 U/L (15-37); BICARBONATE 24.2 MEQ/L (21.0-32.0); BLOOD UREA NITROGEN 10 MG/DL (7-18); CALCIUM 8.8 MG/DL (8.5-10.1); CHLORIDE 107 MEQ/L (98-107); CREATININE 0.67 MG/DL (0.50-1.00); GLOMERULAR FILTRATION RATE 109 ML/MIN (>89); GLUCOSE,FASTING 100 MG/DL (74-99); SODIUM (NA) 139 MEQ/L (136-145)
[2017-06-19 12:34] LABS: HEMOGLOBIN A1C 5.3 % (4.3-6.0)
== END ==
LOC: CLAB 08:17
PROVIDERS: ATTEND Internal Medicine Rheumatology
DX: M33.20 Polymyositis, organ involvement unspecified (principal); E78.5 Hyperlipidemia, unspecified; E11.9 Type 2 diabetes mellitus without complications; D64.9 Anemia, unspecified; E03.9 Hypothyroidism, unspecified; R74.8 Abnormal levels of other serum enzymes; Z13.228 Encounter for screening for other metabolic disorders
CPT/HCPCS: 36415; 80053; 80061; 82550; 82552; 83036; 83690; 84443; 85025; 85652